=== PATIENT | female | born 1985 | race Caucasian/White ===

== ENCOUNTER → 2018-01-16 | Outpatient (CLI) | payer OTHER ==
--- NOTE | 2018-01-16 09:08 | MR ---
PRE AND POSTCONTRAST ENHANCED MRI OF THE BRAIN: CLINICAL HISTORY: Vertigo and syncope CONTRAST: 7ml gadavist Multiplanar and multispin-echo imaging of the brain was performed both before and after the administr ation of contrast. The ventricles, basal cisterns and sulci overlying the cerebral convexities are within normal limits. There is no evidence for midline shift or mass effect. Acute intracranial hemorrhage or extra-axial collection is not evident. There is a solitary 6 mm focus of increased signal within the posterior right centrum semioval bilate rally on the FLAIR data set. Following contrast administration, there is no evidence for pathologic enhancement or enhancing mass. The paranasal sinuses and mastoid air cells are well-aerated. IMPRESSION: Single live nonspecific. T2 lesion posterior right centrum semiovale semioval.
== END ==
LOC: RADMRIMAIN 08:11
PROVIDERS: ATTEND Family Medicine
DX: R55 Syncope and collapse (principal); R42 Dizziness and giddiness
CPT/HCPCS: 70553; A9581

== ENCOUNTER 2022-03-16 22:43 | Emergency (ER) | payer BC, OTHER ==
[2022-03-16 22:51] VITALS: BP 111/78; PULSE 106; RESP 20; TEMP 98.3
--- NOTE | 2022-03-16 23:30 | XR ---
EXAMINATION TYPE: XR Hip Complete RT DATE OF EXAM: 03/16/2022 COMPARISON: NONE HISTORY: Pain TECHNIQUE: 2 views FINDINGS: There is no fracture nor dislocation. Hip joint space is fairly normal. IMPRESSION: Negative right hip exam.
[2022-03-17] MEDS ORDERED: KETOROLAC 15 MG/ML 1 ML VIAL IM STA (00:14)
[2022-03-17] MEDS ORDERED: predniSONE 50 MG TAB PO STA (00:14)
--- NOTE | 2022-03-17 00:48 | ED ---
General Adult HPI - General Chief complaint: Extremity Injury, Lower Stated complaint: Right Side Hip pain Time Seen by Provider: 03/16/22 23:39 Source: patient, RN notes reviewed Mode of arrival: wheelchair Limitations: no limitations - History of Present Illness Initial comments: 36-year-old female presents to the emergency department for evaluation of right hip pain. Patient states she was dancing at her wedding this evening and her right hip became more painful as the night went on. States she eventually felt as if her leg "would give out." Reports pain worsens with ambulation. Patient denies any injury, trauma, or fall. Did not take anything for pain prior to arrival. - Related Data Previous Rx's Medication Instructions Recorded predniSONE 50 mg PO DAILY #4 tab 03/17/22 Allergies Allergy/AdvReac Type Severity Reaction Status Date / Time No Known Allergies Allergy Verified 03/16/22 22:51 Review of Systems ROS Statement: Those systems with pertinent positive or pertinent negative responses have been documented in the HPI. ROS Other: All systems not noted in ROS Statement are negative. Past Medical History Additional Past Medical History / Comment(s): PCOS, History of Any Multi-Drug Resistant Organisms: None Reported Past Psychological History: No Psychological Hx Reported Smoking Status: Never smoker Past Alcohol Use History: None Reported Past Drug Use History: None Reported General Exam Limitations: physical limitation (Pain worsens with ambulation) General appearance: alert, in no apparent distress, other (Well-developed, well-nourished female in no acute distress. Initial temperature 98.3, pulse 106, respirations 20, blood pressure 111/78, pulse ox 100% on room air.) Respiratory exam: Present: normal lung sounds bilaterally. Absent: respiratory distress, wheezes, rales, rhonchi, stridor Cardiovascular Exam: Present: regular rate, normal rhythm, normal heart sounds. Absent: systolic murmur, diastolic murmur, rubs, gallop, clicks GI/Abdominal exam: Present: soft, normal bowel sounds. Absent: distended, tenderness, guarding, rebound, rigid Right Hip exam: Present: normal inspection, tenderness (Tenderness upon palpation of the lateral aspect of the hip over the ventral gluteal region). Absent: full ROM (Pain limiting ROM with abduction and abduction of the right hip), swelling, abrasion, deformity, crepitus, dislocation, external rotation, internal rotation, shortening Upper Leg exam: Present: normal inspection Knee exam: Present: normal inspection, full ROM. Absent: tenderness, swelling Lower Leg exam: Present: normal inspection, full ROM. Absent: tenderness, swelling Ankle exam: Present: normal inspection, full ROM. Absent: tenderness, swelling Foot/Toe exam: Present: normal inspection, full ROM. Absent: tenderness, swelling Neurovascular tendon exam: Present: no vascular compromise. Absent: pulse deficit, abnormal cap refill Gait: observed and limited by pain Neurological exam: Present: alert, oriented X3 Psychiatric exam: Present: normal affect, normal mood Skin exam: Present: warm, dry, intact, normal color. Absent: rash Course Vital Signs 03/16/22 22:49 Temperature 98.3 F Pulse Rate 106 H Respiratory 20 Rate Blood Pressure 111/78 O2 Sat by Pulse 100 Oximetry Medical Decision Making - Medical Decision Making 36-year-old female in no significant past medical history presents to the emergency department for evaluation of right hip pain, onset this evening. Upon exam, patient is well-appearing and in no acute distress while at rest. However, upon palpation of the lateral aspect of the right hip and with weight- bearing activity, patient becomes quite painful. She has decreased range of motion of right hip. X-ray is unremarkable. I suspect that this is a tendinopathy therefore patient is given Toradol and prednisone with some improvement. She will be discharged home with crutches and instructed to remain non-weightbearing. She is provided a note for work. Suggested alternating Tylenol and Motrin for pain control. Patient will be encouraged to rest with no vigorous exercise for the next week. She is instructed to follow up with her PCP for a recheck on Friday. Return parameters discussed in detail. Patient verbalizes understanding and agrees with this plan. Attending: Troy. - Radiology Data Radiology results: report reviewed, image reviewed X-ray of the right hip was obtained. Report was reviewed in its entirety. Impression per Dr. Roque is negative right hip exam. Disposition Clinical Impression: Right hip pain Disposition: HOME SELF-CARE Condition: Stable Instructions (If sedation given, give patient instructions): Crutch Instructions (ED), Hip Pain (ED) Additional Instructions: Take prednisone as prescribed. May alternate Motrin and Tylenol for pain control. Apply ice or heat for no more than 20 minutes per hour. You are being provided with a note for work. Rest and remain nonweight bearing until you have been seen by your PCP for a recheck. Prescriptions: predniSONE 50 mg PO DAILY #4 tab Is patient prescribed a controlled substance at d/c from ED?: No Referrals: Nonstaff,Physician [Primary Care Provider] - 1-2 days Time of Disposition: 00:54
== END 2022-03-17 01:18 | disposition home or self-care (01) ==
LOC: EC 22:43
DX: M25.551 Pain in right hip (principal)
CPT/HCPCS: 73502; 96372; 99283